=== PATIENT | female | born 1980 | race Caucasian/White ===

== ENCOUNTER 2019-06-23 16:40 | Emergency (ER) | payer MEDICAID, OTHER ==
[~2019-06-23] VITALS: Ht 152.4 cm; Wt 65.3 kg
[2019-06-23 16:57] VITALS: BP 125/85
--- NOTE | 2019-06-23 17:30 | NUR ---
PT PLACED ON PULSE OX
--- NOTE | 2019-06-23 17:31 | NUR ---
C/O COUGH, SORE THROAT, CONGESTION X2 WEEKS ACCOMPANIED BY BODY ACHES PAIN 5/10. COARSE BREATH SOUNDS BILATERALLY. RR EVEN WITH MILD LABOR. REDNESS NOTED TO THROAT. PT HAS BEEN TAKING OTC ROBUTUSSIN WITH SOME RELIEF. VS STABLE. TP ALERT AND AWAKE AND AMBULATORY WITH STEADY GAIT. HX: NONE RX: NONE
--- NOTE | 2019-06-23 17:35 | NUR ---
XRAY AT BEDSIDE
[2019-06-23] MEDS: IPRATROPIUM 0.02% 0.5 MG/2.5 ML NEBU INH ONE (17:38)
[2019-06-23] MEDS: ALBUTEROL 0.083% 2.5 MG/3 ML NEBU INH ONE (17:38)
--- NOTE | 2019-06-23 17:42 | NUR ---
RT AT BEDSIDE
[2019-06-23] MEDS: predniSONE 20 MG TAB PO ONE (18:00)
--- NOTE | 2019-06-23 18:00 | NUR ---
PREDNISONE PO ADMINISTERED TO PT
--- NOTE | 2019-06-23 18:07 | NUR ---
DR GILLILAND AT BEDSIDE.
--- NOTE | 2019-06-23 18:24 | NUR ---
Patient discharged with v/s stable. Written and verbal after care instructions given and explained. Patient alert, oriented and verbalized understanding of instructions. Ambulatory with steady gait. All questions addressed prior to discharge. ID band removed. Patient advised to follow up with PMD. Rx of promethazine dm, prednisone, albuterol with aerochamber given. Patient educated on indication of medication including possible reaction and side effects. Opportunity to ask questions provided and answered.
[2019-06-23 18:25] VITALS: BP 141/75
== END 2019-06-23 18:24 | disposition home or self-care (01) ==
LOC: MED 16:40
DX: J40 Bronchitis, not specified as acute or chronic (principal); J98.01 Acute bronchospasm
CPT/HCPCS: 71045; 94640; 99283; J7512; J7613; J7644; Q0092

== ENCOUNTER 2019-08-10 11:01 | Emergency (ER) | payer OTHER ==
[~2019-08-10] VITALS: Ht 160 cm; Wt 65.8 kg
[2019-08-10 11:03] VITALS: BP 124/79
--- NOTE | 2019-08-10 11:10 | NUR ---
WAIT AT LOBBY.
[2019-08-10] MEDS ORDERED: NACL 0.9% 1,000 ML IV ONE (11:20)
--- NOTE | 2019-08-10 11:23 | NUR ---
PT TAKEN TO ER BED 12
--- NOTE | 2019-08-10 11:48 | NUR ---
39 YO F CO COUGH, HEADACHE AND CHILLS FOR 2-3D. HEADACHE 3/10. NO PAST MED HX. NO AT HOME MEDS. NO ONE AT HOME SICK.
--- NOTE | 2019-08-10 12:30 | NUR ---
ER AT BEDSIDE
[2019-08-10 12:41] VITALS: BP 124/79
--- NOTE | 2019-08-10 12:42 | NUR ---
IV removed, catheter intact and site benign. Applied folded 4x4 gauze and tape to stop bleeding.
--- NOTE | 2019-08-10 12:42 | NUR ---
Patient discharged with v/s stable. Written and verbal after care instructions given and explained. Patient alert, oriented and verbalized understanding of instructions. Ambulatory with steady gait. All questions addressed prior to discharge. ID band removed. Patient advised to follow up with PMD. Rx of PREDISOLONE AND MOTRIN given. Patient educated on indication of medication including possible reaction and side effects. Opportunity to ask questions provided and answered.
--- NOTE | 2019-08-11 08:59 | NUR ---
Late entry. COnfirmed with RN that 0.9 NS IV started at 12 completed at 1240
== END 2019-08-10 12:42 | disposition home or self-care (01) ==
LOC: MED 11:01
DX: J11.1 Influenza due to unidentified influenza virus with other respiratory manifestations (principal)
CPT/HCPCS: 71045; 99283; Q0092

== ENCOUNTER 2021-02-11 09:31 | Emergency (ER) | payer MEDICAID, SELFPAY ==
[~2021-02-11] VITALS: Ht 160 cm; Wt 65.8 kg
[2021-02-11 09:53] VITALS: BP 129/88
--- NOTE | 2021-02-11 09:57 | NUR ---
PT TAKEN TO TENT 1 FOR TRIAGE.
--- NOTE | 2021-02-11 10:38 | NUR ---
NO NURSING INTERVENTIONS DONE, NO COMPLETE ASSESSMENT NEEDED.
[2021-02-11] MEDS ORDERED: IBUP-2213 PO (10:57)
[2021-02-11] MEDS ORDERED: METO-486 PO (10:57)
[2021-02-11 11:42] VITALS: BP 129/88
--- NOTE | 2021-02-11 11:43 | NUR ---
Patient discharged with v/s stable. Written and verbal after care instructions given COVID-19 and explained. Patient alert, oriented and verbalized understanding of instructions. Ambulatory with steady gait. All questions addressed prior to discharge. ID band removed. Patient advised to follow up with PMD. Rx of IBUPROFEN 600MG PO QID, AND REGLAN 10MG PO QID PRN VOMITING given. Patient educated on indication of medication including possible reaction and side effects. Opportunity to ask questions provided and answered.
--- NOTE | 2021-02-11 12:03 | NUR ---
DURING DX PT WAS GIVEN IBUPROFEN AND REGLAN RX FOR SYMPTOMS. PT STATED "I WAS TOLD I WAS GOING TO BE GETTING ANTIBIOTICS." INFORMED ERMD OF SITUATION, ERMD STATED THERE WAS NON NEEDED AT THIS TIME. INFORMED PT THAT ANTIBIOTICS ARE NOT NEEDED A THIS TIME.
== END 2021-02-11 11:43 | disposition home or self-care (01) ==
LOC: MED 09:31
DX: U07.1 COVID-19 (principal)
CPT/HCPCS: 99283